=== PATIENT | female | born 1995 | race Caucasian/White ===

== ENCOUNTER → 2021-04-10 14:37 | Outpatient (CLI) | payer SELFPAY ==
--- NOTE | 2021-04-10 14:43 | US_ITS ---
INDICATION: pelvic pain-off and on for months EXAMINATION: US Pelvis Non-OB Complete TECHNIQUE: Transabdominal and transvaginal pelvic ultrasound was performed. Grayscale, spectral waveform, and color flow Doppler evaluation of the adnexa. COMPARISON: None. FINDINGS: UTERUS: Anteverted. The uterus measures 8.5 x 5.9 x 4.8 cm. There is no uterine mass. The endometrial stripe measures 1 cm in AP diameter which is within normal limits. RIGHT OVARY: Measures 3.9 x 2.1 x 1.5 cm. Non-enlarged, normal echogenicity. There is normal arterial inflow and venous outflow present in the right ovary. LEFT OVARY: Measures 4.4 x 2.8 x 2 cm. Non-enlarged, normal echogenicity. There is normal arterial inflow and venous outflow present in the left ovary. 1.9 cm dominant follicle. FREE FLUID: None. US/Transvaginal Non- IMPRESSION: Normal pelvic ultrasound. Electronically Signed: Elliott Sherwood MD at 16:59 EDT Tel , Service support ,
--- NOTE | 2021-04-10 14:43 | US_ITS ---
INDICATION: pelvic pain-off and on for months EXAMINATION: US Pelvis Non-OB Complete TECHNIQUE: Transabdominal and transvaginal pelvic ultrasound was performed. Grayscale, spectral waveform, and color flow Doppler evaluation of the adnexa. COMPARISON: None. FINDINGS: UTERUS: Anteverted. The uterus measures 8.5 x 5.9 x 4.8 cm. There is no uterine mass. The endometrial stripe measures 1 cm in AP diameter which is within normal limits. RIGHT OVARY: Measures 3.9 x 2.1 x 1.5 cm. Non-enlarged, normal echogenicity. There is normal arterial inflow and venous outflow present in the right ovary. LEFT OVARY: Measures 4.4 x 2.8 x 2 cm. Non-enlarged, normal echogenicity. There is normal arterial inflow and venous outflow present in the left ovary. 1.9 cm dominant follicle. FREE FLUID: None. US/Pelvic (Non ) IMPRESSION: Normal pelvic ultrasound. Electronically Signed: Elliott Sherwood MD at 16:59 EDT Tel , Service support ,
== END ==
PROVIDERS: Referring Provider Obstetrics & Gynecology; Visit Provider Obstetrics & Gynecology
DX: R10.2 Pelvic and perineal pain (principal)
CPT/HCPCS: 76830; 76856; 87070; 87205